=== PATIENT | female | born 1955 | race Hispanic/Latino ===

== ENCOUNTER 2020-01-11 01:30 | Inpatient (IN) | payer OTHER ==
[~2020-01-11] VITALS: Ht 152.4 cm; Wt 40.4 kg
[2020-01-11 01:59] LABS: BASOPHILS % (AUTO) 0.4 % (0.0-5.0); EOSINOPHILS % (AUTO) 0.1 % (0.0-8.0); HEMATOCRIT 50.2 % (36-48); LYMPHOCYTES % (AUTO) 8.6 % (21.0-51.0); MEAN CORPUSCULAR HEMOGLOBIN 31.8 pg (27.0-33.0); MEAN CORPUSCULAR HGB CONC 33.9 g/dL (32.0-36.0); MEAN CORPUSCULAR VOLUME 93.8 fL (79-99); MONOCYTES % (AUTO) 3.8 % (3.0-13.0); NEUTROPHILS % (AUTO) 85.3 % (40.0-77.0); PLATELET COUNT (AUTO) 464 K/uL (130-400); RED BLOOD CELL COUNT(AUTO) 5.35 MIL/uL (4.00-5.50); RED CELL DISTRIBUTION WIDTH 12.3 % (11.0-15.5); WHITE BLOOD COUNT (AUTO) 18.4 K/uL (4.8-10.8)
[2020-01-11] MEDS ORDERED: ONDANSETRON HCL 4 MG/2 ML VIAL ONE ×2 (02:01→10:38)
[2020-01-11 02:12] LABS: INR 0.97 (0.85-1.15); PARTIAL THROMBOPLASTIN TIME 26.3 SEC (26.3-35.5); PROTHROMBIN TIME 10.5 SEC (9.6-11.6)
[2020-01-11 02:13] LABS: ALBUMIN 4.5 g/dL (3.5-5.0); BILIRUBIN,TOTAL 0.4 mg/dL (0.2-1.0); CREATININE 1.2 mg/dL (0.5-1.5); POTASSIUM 3.7 mmol/L (3.5-5.1); TOTAL PROTEIN, SERUM 9.2 g/dL (6.0-8.3)
[2020-01-11 02:32] LABS: ABG HCO3 2.7 mmol/L (21.0-28.0); ABG OXYGEN SATURATION 97.4 % (95.0-99.0); ABG PCO2 < 15 mmHg (32-45)
[2020-01-11] MEDS ORDERED: INSULIN HUMULIN R 100 UNIT/ML 3ML ONE (02:32)
[2020-01-11] MEDS ORDERED: SODIUM CHLORIDE 0.9% 1000ML 2,000 ML IV ONE (02:33)
[2020-01-11] MEDS ORDERED: SODIUM CHLORIDE 0.9% 100 ML IV ONE (02:33)
[2020-01-11] MEDS ORDERED: POTASSIUM CHLORIDE 20MEQ/100ML 100 ML IV ONE ×2 (02:44→05:47)
[2020-01-11] MEDS ORDERED: SODIUM BICARB 50MEQ 50ML VIAL 100 ML ONE ×2 (02:44→05:19)
[2020-01-11 03:14] LABS: APPEARANCE,URINE Clear (CLEAR); BILIRUBIN,URINE Negative (NEGATIVE); COLOR,URINE Yellow (YELLOW); GLUCOSE, URINE (UA) >=1000 mg/dL (NEGATIVE); KETONES,URINE >=160 mg/dL (NEGATIVE); LEUKOCYTE ESTERASE ,URINE Negative (NEGATIVE); NITRATE,URINE Negative (NEGATIVE); OCCULT BLOOD,URINE Small (NEGATIVE); PROTEIN,URINE POS 2+ mg/dL (NEGATIVE); UROBILINOGEN,URINE 0.2 mg/dL (0.2-1.0)
[2020-01-11 03:21] LABS: AMORPHOUS SEDIMENT,UR Many /LPF (None Seen); BACTERIA,URINE Rare /HPF (None Seen); MUCUS,URINE Few LPF (None Seen); RBC,URINE None Seen /HPF (0-1); SQUAMOUS EPITHELIAL CELL,UR Few /HPF (0-2); WBC,URINE None Seen /HPF (0-1)
[2020-01-11] MEDS ORDERED: SODIUM CHLORIDE 0.9% 1000ML 1,000 ML IV ONE ×2 (03:43→04:39)
[2020-01-11] MEDS ORDERED: DEXTROSE 5 %-0.45 % NACL 1,000 ML IV PRN (04:15)
[2020-01-11] MEDS ORDERED: HYDRALAZINE HCL 20 MG/ML VIAL IV PRN (04:15)
[2020-01-11] MEDS ORDERED: ACETAMINOPHEN 325 MG TAB PO PRN ×2 (04:15)
[2020-01-11] MEDS ORDERED: ONDANSETRON HCL 4 MG/2 ML VIAL IV PRN (04:15)
[2020-01-11] MEDS ORDERED: LACTULOSE 20 GM/30 ML UDCUP PO PRN (04:15)
[2020-01-11] MEDS ORDERED: SODIUM CHLORIDE 0.9% 1000ML 1,000 ML IV SCH ×3 (04:15→15:45)
[2020-01-11] MEDS ORDERED: MORPHINE SULFATE 2 MG/ML 1ML SYG IV PRN (04:15)
[2020-01-11] MEDS ORDERED: INSULIN REGULAR, HUMAN 3ML 100 UNIT in SODIUM CHLORIDE 0.9% 99 ML IV PRN ×2 (04:30)
[2020-01-11 05:10] LABS: ABG BASE EXCESS -24.6 mmol/L (-2.0-3.0); ABG HCO3 3.1 mmol/L (21.0-28.0); ABG OXYGEN SATURATION 98.1 % (95.0-99.0); ABG PCO2 < 15 mmHg (32-45)
[2020-01-11 05:12] LABS: CREATININE 0.8 mg/dL (0.5-1.5); POTASSIUM 3.8 mmol/L (3.5-5.1)
[2020-01-11 05:21] LABS: ALBUMIN 3.3 g/dL (3.5-5.0); BILIRUBIN,TOTAL 0.5 mg/dL (0.2-1.0); TOTAL PROTEIN, SERUM 6.8 g/dL (6.0-8.3)
[2020-01-11] MEDS ORDERED: GLUCAGON 1MG KIT 1 MG ML IM PRN (07:45)
[2020-01-11] MEDS ORDERED: DEXTROSE 50%-WATER 50 ML DISP.SYRIN IV PRN (07:45)
[2020-01-11] MEDS ORDERED: NS-20 MEQ KCL 1000ML 1,000 ML IV SCH (07:45)
[2020-01-11] MEDS ORDERED: FAMOTIDINE/PF 20 MG/2 ML VIAL IV ONE (08:30)
[2020-01-11] MEDS ORDERED: ENOXAPARIN SODIUM 40 MG/0.4 ML SYRINGE SQ ONE (08:30)
[2020-01-11] MEDS: POTASSIUM CHLORIDE 30 MEQ in SODIUM CHLORIDE 0.9% 1000ML 1,000 ML IV SCH ×2 (08:45→12:45)
[2020-01-11] MEDS: FAMOTIDINE/PF 20 MG/2 ML VIAL IV SCH ×2 (09:00→21:06)
[2020-01-11] MEDS: ENOXAPARIN SODIUM 40 MG/0.4 ML SYRINGE SQ SCH (09:00)
[2020-01-11] MEDS ORDERED: ZOSYN 3.375GM+NS 50ML 50 ML IV ONE (09:09)
[2020-01-11] MEDS ORDERED: MAGNESIUM 2GM PREMIX 50ML 50 ML IV ONE (09:10)
[2020-01-11] MEDS: ZOSYN 3.375GM+NS 50ML 50 ML IV SCH ×3 (09:15→21:06)
[2020-01-11] MEDS ORDERED: MAGNESIUM 2GM PREMIX 50ML 50 ML IV NR ×2 (09:30→15:00)
[2020-01-11] MEDS ORDERED: MORPHINE SULFATE 2 MG/ML 1ML SYG ONE (10:38)
[2020-01-11] MEDS ORDERED: INSULIN R PO SS2 SQ SCH (11:30)
[2020-01-11 12:15] VITALS: BP 104/32
[2020-01-11 13:24] LABS: CREATININE 0.7 mg/dL (0.5-1.5); POTASSIUM 3.5 mmol/L (3.5-5.1)
[2020-01-11 13:32] LABS: ABG OXYGEN SATURATION 67.6 % (95.0-99.0); BASE EXCESS,VENOUS BLOOD GAS -17.4 (-2.0-3.0); HCO3,VENOUS BLOOD GAS 9.1 (21.0-28.0); PCO2,VENOUS BLOOD GAS 25 (32-45); PH,VENOUS BLOOD GAS 7.183 (7.350-7.450)
[2020-01-11] MEDS ORDERED: D5W-1/2 NS/20MEQ KCL 1,000 ML IV SCH (15:30)
--- NOTE | 2020-01-11 15:43 | NUR ---
CM NOTE/IA UNSUCCESSFUL UNABLE TO MET WITH PATIENT AT BEDSIDE. PATIENTS PHONE NUMBER, , CALLED AND NO ANSWER, VM LEFT. SPOUSE, BEKA SPARKS [phone], ALSO CALLED, NO ANSWER AND VOICEMAIL LEFT. CM TO FOLLOW UP ON IA. Addendum: 01/11/20 at 1544 by AMY CAGE RN CM Amended: Links added.
[2020-01-11] MEDS: POTASSIUM CHLORIDE 10MEQ/100ML 100 ML IV PRN (17:45)
[2020-01-11 21:06] LABS: CREATININE 0.8 mg/dL (0.5-1.5); POTASSIUM 3.3 mmol/L (3.5-5.1)
[2020-01-12] VITALS (14 sets, daily range): BP systolic 78–129; BP diastolic 42–75
[2020-01-12 04:26] LABS: BASOPHILS % (AUTO) 0.2 % (0.0-5.0); EOSINOPHILS % (AUTO) 0.6 % (0.0-8.0); HEMATOCRIT 38.7 % (36-48); LYMPHOCYTES % (AUTO) 13.8 % (21.0-51.0); MEAN CORPUSCULAR HEMOGLOBIN 31.7 pg (27.0-33.0); MEAN CORPUSCULAR HGB CONC 35.7 g/dL (32.0-36.0); MEAN CORPUSCULAR VOLUME 88.8 fL (79-99); MONOCYTES % (AUTO) 8.9 % (3.0-13.0); NEUTROPHILS % (AUTO) 76.2 % (40.0-77.0); PLATELET COUNT (AUTO) 289 K/uL (130-400); RED BLOOD CELL COUNT(AUTO) 4.36 MIL/uL (4.00-5.50)
[2020-01-12 04:58] LABS: CREATININE 0.8 mg/dL (0.5-1.5); MAGNESIUM 2.1 mg/dL (1.80-2.40); PHOSPHORUS 1.2 mg/dL (2.5-4.9); POTASSIUM 3.1 mmol/L (3.5-5.1)
[2020-01-12] MEDS: ZOSYN 3.375GM+NS 50ML 50 ML IV SCH (05:24)
[2020-01-12] MEDS ORDERED: POTASSIUM CHLORIDE 20 MEQ/100 ML BAG IV SCH (07:30)
[2020-01-12] MEDS: INSULIN HUMULIN R 100 UNIT/ML 3ML SQ SCH ×7 (07:30→22:11)
[2020-01-12] MEDS: INSULIN GLARGINE 100 UNITS/ML 10 ML VIAL SQ SCH ×2 (08:14→08:16)
[2020-01-12] MEDS: ENOXAPARIN SODIUM 40 MG/0.4 ML SYRINGE SQ SCH (08:15)
[2020-01-12] MEDS: FAMOTIDINE/PF 20 MG/2 ML VIAL IV SCH ×2 (08:15→21:56)
[2020-01-12] MEDS: LACTATED RINGERS 1000ML 1,000 ML IV SCH ×3 (08:15→21:56)
--- NOTE | 2020-01-12 08:44 | NUR ---
CHART CHECK COMPLETED. Pt IS A 64 Y.O. FEMALE ADMITTED SECONDARY TO DKA AND HYPERTENSION. Pt HAS A PAST MEDICAL HISTORY SIGNIFICANT FOR DMII. Pt CURRENTLY NPO DUE TO ADMITTING DIAGNOSIS. PLEASE REQUEST FORMAL SKILLED SPEECH THERAPY ORDER IF Pt PRESENTS WITH +S/S OF ASPIRATION SUCH COUGH RESPONSE, THROAT CLEAR OR WET VOCAL QUALITY AT MEAL TIMES. Addendum: 01/12/20 at [address] Amended: Links added.
[2020-01-12] MEDS ORDERED: POTASSIUM PHOS 15 mMOL+NS250ML 250 ML IV PRN (10:30)
--- NOTE | 2020-01-12 11:19 | NUR ---
DC PLAN VISITED WITH PATIENT. PATIENT LIVES WITH SPOUSE. INDEPENDENT ABLE TO PERFORM ADL'S. PATIENT HAS NO SERVICE OR DME'S. FEELS SAFE TO RETURN HOME. 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 SAYS HAS DIABETES FOR A WHILE. DOES CHECK SUGARS GOES TO [facility]. Addendum: 01/12/20 at 1120 by WILDER VEGA RN CM Amended: Links added.
[2020-01-12 16:37] LABS: CREATININE 0.6 mg/dL (0.5-1.5); MAGNESIUM 1.9 mg/dL (1.80-2.40); PHOSPHORUS 2.1 mg/dL (2.5-4.9); POTASSIUM 3.3 mmol/L (3.5-5.1)
--- NOTE | 2020-01-12 16:40 | NUR ---
Report given to JUAN Rodriguez, to be transferred to room 424
[2020-01-12] MEDS: POTASSIUM CHLORIDE 10MEQ/100ML 100 ML IV PRN (16:46)
--- NOTE | 2020-01-12 17:00 | NUR ---
Transferred to room 424 via wheelchair, patient's granddaughter at bedside.
[2020-01-13 04:13] VITALS: BP 135/72
[2020-01-13 05:04] LABS: BASOPHILS % (AUTO) 0.2 % (0.0-5.0); EOSINOPHILS % (AUTO) 1.8 % (0.0-8.0); HEMATOCRIT 34.5 % (36-48); LYMPHOCYTES % (AUTO) 35.1 % (21.0-51.0); MEAN CORPUSCULAR HEMOGLOBIN 31.7 pg (27.0-33.0); MEAN CORPUSCULAR HGB CONC 36.2 g/dL (32.0-36.0); MEAN CORPUSCULAR VOLUME 87.6 fL (79-99); MONOCYTES % (AUTO) 8.7 % (3.0-13.0); NEUTROPHILS % (AUTO) 53.7 % (40.0-77.0); PLATELET COUNT (AUTO) 222 K/uL (130-400); RED BLOOD CELL COUNT(AUTO) 3.94 MIL/uL (4.00-5.50); RED CELL DISTRIBUTION WIDTH 11.9 % (11.0-15.5); WHITE BLOOD COUNT (AUTO) 6.6 K/uL (4.8-10.8)
[2020-01-13 05:34] LABS: CREATININE 0.3 mg/dL (0.5-1.5)
[2020-01-13] MEDS: INSULIN HUMULIN R 100 UNIT/ML 3ML SQ SCH ×8 (05:39→21:54)
[2020-01-13 05:46] LABS: POTASSIUM 2.9 mmol/L (3.5-5.1)
[2020-01-13] MEDS ORDERED: LIDOCAINE HCL-MPF 1% 2ML VIAL IJ PRN (06:00)
[2020-01-13] MEDS ORDERED: POTASSIUM CHLORIDE 10% ELIXIR 20 MEQ/15 ML UDCUP PO PRN (06:00)
[2020-01-13] MEDS ORDERED: MAGNESIUM 2GM PREMIX 50ML 50 ML IV PRN (06:00)
[2020-01-13] MEDS ORDERED: POTASSIUM CHLORIDE 20MEQ/100ML 100 ML IV PRN (06:00)
[2020-01-13] MEDS ORDERED: LIDOCAINE HCL-MPF 1% 2ML VIAL ONE (06:21)
[2020-01-13] MEDS ORDERED: POTASSIUM CHLORIDE 20MEQ/100ML 100 ML IV ONE (06:21)
[2020-01-13 06:46] LABS: MAGNESIUM 1.7 mg/dL (1.80-2.40); PHOSPHORUS 1.8 mg/dL (2.5-4.9)
[2020-01-13 07:48] VITALS: BP 129/70
[2020-01-13] MEDS ORDERED: INSULIN GLARGINE 100 UNITS/ML 10 ML VIAL SQ SCH (09:00)
[2020-01-13] MEDS: FAMOTIDINE/PF 20 MG/2 ML VIAL IV SCH ×2 (10:08→21:53)
[2020-01-13] MEDS: ENOXAPARIN SODIUM 40 MG/0.4 ML SYRINGE SQ SCH (10:08)
[2020-01-13 11:45] VITALS: BP 97/52
--- NOTE | 2020-01-13 12:43 | NUR ---
SHIRA FULTON MADE AWARE OF BS 355, NO NEW ORDERS
[2020-01-13 15:30] VITALS: BP 108/90
[2020-01-13] MEDS ORDERED: POTASSIUM CHLORIDE 20 MEQ ERTAB PO SCH (17:45)
[2020-01-13 20:00] VITALS: BP 128/72
[2020-01-13 23:26] VITALS: BP 115/55
[2020-01-14 03:51] LABS: BASOPHILS % (AUTO) 0.3 % (0.0-5.0); EOSINOPHILS % (AUTO) 0.2 % (0.0-8.0); HEMATOCRIT 34.7 % (36-48); LYMPHOCYTES % (AUTO) 27.9 % (21.0-51.0); MEAN CORPUSCULAR HEMOGLOBIN 31.5 pg (27.0-33.0); MEAN CORPUSCULAR HGB CONC 35.4 g/dL (32.0-36.0); MEAN CORPUSCULAR VOLUME 88.7 fL (79-99); MONOCYTES % (AUTO) 9.1 % (3.0-13.0); NEUTROPHILS % (AUTO) 62.2 % (40.0-77.0); PLATELET COUNT (AUTO) 249 K/uL (130-400); RED BLOOD CELL COUNT(AUTO) 3.91 MIL/uL (4.00-5.50); RED CELL DISTRIBUTION WIDTH 11.9 % (11.0-15.5); WHITE BLOOD COUNT (AUTO) 6.2 K/uL (4.8-10.8)
[2020-01-14 03:59] LABS: CREATININE 0.4 mg/dL (0.5-1.5); POTASSIUM 3.3 mmol/L (3.5-5.1)
[2020-01-14 04:00] VITALS: BP 108/60
[2020-01-14] MEDS: INSULIN HUMULIN R 100 UNIT/ML 3ML SQ SCH ×4 (06:00→11:58)
--- NOTE | 2020-01-14 07:45 | NUR ---
ASSESSMENT ENCOUNTERED PT AMBULATING TO BATHROOM, A&OX3, GAIT STEADY AND STRONG WITH STAND BY ASSIST. PT DENIES PAIN, SOB, NAUSEA, CALM COOPERATIVE AND DOES NOT APPEAR TO BE IN ANY DISTRESS NOR ANY NEURO DEFICITS PRESENT. PT IS ABLE TO TOLERATE FOODS, FLUIDS AND MEDICATION WITH NO THROAT CLEARING OR COUGH. CALL LIGHT WITHIN REACH.
[2020-01-14 08:00] VITALS: BP 110/59
[2020-01-14 08:34] LABS: PHOSPHORUS 2.6 mg/dL (2.5-4.9)
[2020-01-14] MEDS: FAMOTIDINE/PF 20 MG/2 ML VIAL IV SCH (09:00)
[2020-01-14] MEDS ORDERED: INSULIN GLARGINE 100 UNITS/ML 10 ML VIAL SQ SCH (09:00)
[2020-01-14] MEDS ORDERED: FAMOTIDINE 20MG TAB 20 MG TAB ONE (09:03)
[2020-01-14] MEDS: POTASSIUM CHLORIDE 20 MEQ ERTAB PO PRN ×2 (09:17→11:57)
[2020-01-14 11:55] VITALS: BP 101/51
--- NOTE | 2020-01-14 14:20 | NUR ---
RD NOTIFICATION Pt admitted due to DKA and HTN. Pt denies current n/v. Pt stated she is eating better and has an appetite. Pt is currently on a 75 gm CC and consuming 100% as per EMR. Pt was dx with DM 10 years ago. Pt stated she has had prior education and has attended classes in [facility] [address]. As per pt, she has had unintentional wt loss of 40 lbs. Unclear in time frame. As per pt, she tends to forget to follow her insulin regimen at home. RD was consulted for Diet education, malnutrition and wt loss. %UBW: 68% (SEVERE MALNUTRITION) %WT CHANGE: 31% (UNCLEAR ON TIME FRAME. SIGNIFICANT WT CHANGE.) BMI: 17.4 (PROTEIN ENERGY MALNUTRITION II) LOW BMI FOR AGE. RD RECOMMENDATION: Continue current diet order. Glucerna BID Monitor PO intake and tolerance. Pt may benefit from ProMod 60 ml QD. Diet education. Addendum: 01/14/20 at [address] Amended: Links added.
--- NOTE | 2020-01-14 14:26 | NUR ---
RD TEACHING NOTE Pt was dx with DM 10 years ago. Pt stated she has had prior education and has attended classes in [facility]. As per pt, she has had unintentional wt loss of 40 lbs. Unclear on time frame. As per pt, she tends to forget to follow her insulin regimen at home. RD was consulted for Diet education, malnutrition and wt loss. As per EMR, MD noted pt tends to consume regular sodas daily and eats sweets. When RD asked pt, pt denies drinking sodas or eating sweet food. (A1C >15.5). RD noticed pt was not honest with her daily eating habits. Pt was encouraged to choose diet sodas, sugar free drinks, to follow a balanced diet, and continue attending educational DM classes. Pt was also encouraged to follow recommended DM medication regimen to avoid further unintentional wt loss. Educational material was given, RD encouraged pt to contact RD for further questions. Pt was concerned with her memory loss, pt was encouraged to voice concerns to . RD to follow pt's status. Contact dietary as nutritional concerns arise. Addendum: 01/14/20 at [address] Amended: Links added.
[2020-01-14 16:00] VITALS: BP 125/89
--- NOTE | 2020-01-14 17:48 | NUR ---
DISCHARGE INSTRUCTIONS GIVEN, PIV REMOVED AND INTACT, PRESCRIPTIONS AND SLIDING SCALE PROVIDED PER DR FITZGERALD'S ORDER. PT DISCHARGED TO FAMILY VEHICLE VIA WHEELCHAIR.
== END 2020-01-14 17:30 | disposition home or self-care (01) | DRG 637 ==
LOC: EDH 01:30 → EDHIP 04:11 → 2DH 12:26 → 4DH 01-12 17:20
PROVIDERS: ADMIT Internal Medicine; ATTEND Internal Medicine
DX: E11.10 Type 2 diabetes mellitus with ketoacidosis without coma (principal); E43 Unspecified severe protein-calorie malnutrition; Z68.1 Body mass index [BMI] 19.9 or less, adult; D72.828 Other elevated white blood cell count; E10.319 Type 1 diabetes mellitus with unspecified diabetic retinopathy without macular edema; E86.1 Hypovolemia; E86.0 Dehydration; K82.8 Other specified diseases of gallbladder; I10 Essential (primary) hypertension; E10.42 Type 1 diabetes mellitus with diabetic polyneuropathy; E87.6 Hypokalemia; G89.29 Other chronic pain; M79.673 Pain in unspecified foot; Z79.4 Long term (current) use of insulin; Z91.19 Patient's noncompliance with other medical treatment and regimen
CPT/HCPCS: 36415; 36600; 70450; 71045; 74176; 80048; 80053; 81001; 82010; 82550; 82803; 82947; 82948; 83036; 83735; 84100; 84132; 84145; 84484; 85025; 85610; 85730; 93005; 93925; 97039; 99291; G0378; J1650; J1815; J2405; J2543; J3475; J3480; J3490; J7030; J7120

== ENCOUNTER 2020-05-02 11:10 | Inpatient (IN) | payer BC, OTHER ==
[~2020-05-02] VITALS: Ht 152.4 cm; Wt 45.6 kg
[2020-05-02 11:37] LABS: BASOPHILS % (AUTO) 0.3 % (0.0-5.0); EOSINOPHILS % (AUTO) 0.3 % (0.0-8.0); LYMPHOCYTES % (AUTO) 27.5 % (21.0-51.0); MEAN CORPUSCULAR VOLUME 91.1 fL (79-99); MONOCYTES % (AUTO) 8.3 % (3.0-13.0); NEUTROPHILS % (AUTO) 63.1 % (40.0-77.0); PLATELET COUNT (AUTO) 377 K/uL (130-400); RED BLOOD CELL COUNT(AUTO) 4.61 MIL/uL (4.00-5.50); RED CELL DISTRIBUTION WIDTH 11.8 % (11.0-15.5); WHITE BLOOD COUNT (AUTO) 7.4 K/uL (4.8-10.8)
[2020-05-02 12:02] LABS: ALBUMIN 4.3 g/dL (3.5-5.0); BILIRUBIN,TOTAL 0.5 mg/dL (0.2-1.0); CREATININE 0.6 mg/dL (0.5-1.5); POTASSIUM 3.9 mmol/L (3.5-5.1); TOTAL PROTEIN, SERUM 8.2 g/dL (6.0-8.3)
[2020-05-02 12:12] LABS: INR 1.03 (0.85-1.15); PROTHROMBIN TIME 11.2 SEC (9.6-11.6)
[2020-05-02 12:13] LABS: PARTIAL THROMBOPLASTIN TIME 24.5 SEC (26.3-35.5)
[2020-05-02] MEDS: 0.9%NACL 1000ML 1,000 ML IV SCH (17:00)
[2020-05-02 17:08] LABS: HEMOGLOBIN A1C 9.5 % (4.0-6.0)
[2020-05-02] MEDS ORDERED: 0.9%NACL 1000ML 1,000 ML IV ONE (17:47)
[2020-05-02] MEDS ORDERED: MORPHINE 2 MG SYG IVP PRN (18:15)
[2020-05-02] MEDS ORDERED: ONDANSETRON 4MG INJ IV PRN (18:15)
[2020-05-03] MEDS ORDERED: NITROGLYCERIN 0.4 MG SL TAB SL PRN (05:00)
[2020-05-03 07:01] LABS: APPEARANCE,URINE Clear (CLEAR); BILIRUBIN,URINE Negative (NEGATIVE); COLOR,URINE Yellow (YELLOW); GLUCOSE, URINE (UA) Negative (NEGATIVE); KETONES,URINE Negative (NEGATIVE); LEUKOCYTE ESTERASE ,URINE Negative (NEGATIVE); NITRATE,URINE Negative (NEGATIVE); OCCULT BLOOD,URINE Negative (NEGATIVE); PROTEIN,URINE Negative (NEGATIVE); UROBILINOGEN,URINE 0.2 mg/dL (0.2-1.0)
[2020-05-03 07:05] LABS: AMPHET/METH SCREEN,URINE NEGATIVE (NEGATIVE); BARBITURATE SCREEN, URINE NEGATIVE (NEGATIVE); BENZODIAZEPINES SCREEN,URINE NEGATIVE (NEGATIVE); CANNABINOID SCREEN,URINE NEGATIVE (NEGATIVE); COCAINE SCREEN,URINE NEGATIVE (NEGATIVE); OPIATE SCREEN,URINE NEGATIVE (NEGATIVE); PHENCYCLIDINE SCREEN,URINE NEGATIVE (NEGATIVE)
[2020-05-03 07:31] LABS: BASOPHILS % (AUTO) 0.3 % (0.0-5.0); EOSINOPHILS % (AUTO) 0.6 % (0.0-8.0); HEMATOCRIT 41.3 % (36-48); MEAN CORPUSCULAR HEMOGLOBIN 30.6 pg (27.0-33.0); MEAN CORPUSCULAR HGB CONC 33.7 g/dL (32.0-36.0); MONOCYTES % (AUTO) 11.1 % (3.0-13.0); NEUTROPHILS % (AUTO) 60.7 % (40.0-77.0); PLATELET COUNT (AUTO) 366 K/uL (130-400); RED BLOOD CELL COUNT(AUTO) 4.54 MIL/uL (4.00-5.50); RED CELL DISTRIBUTION WIDTH 11.9 % (11.0-15.5); WHITE BLOOD COUNT (AUTO) 7.1 K/uL (4.8-10.8)
[2020-05-03 07:45] LABS: ALBUMIN 3.5 g/dL (3.5-5.0); BILIRUBIN,TOTAL 0.5 mg/dL (0.2-1.0); CREATININE 0.6 mg/dL (0.5-1.5); TOTAL PROTEIN, SERUM 7.1 g/dL (6.0-8.3)
[2020-05-03] MEDS ORDERED: FAMOTIDINE 20MG TAB ONE ×2 (08:00→23:33)
[2020-05-03] MEDS ORDERED: ASPIRIN 81MG CHEW TAB ONE (08:00)
[2020-05-03] MEDS ORDERED: THIAMINE HCL 100 MG TABLET ONE (08:00)
[2020-05-03] MEDS ORDERED: 0.9%NACL 1000ML 1,000 ML IV ONE (08:00)
[2020-05-03] MEDS ORDERED: ENOXAPARIN SODIUM 30 MG/0.3 ML SQ ONE (08:01)
[2020-05-03] MEDS ORDERED: FOLIC ACID 1 MG TABLET ONE (08:01)
[2020-05-03] MEDS: FOLIC ACID 1 MG TABLET PO SCH (09:00)
[2020-05-03] MEDS: ASPIRIN 81MG CHEW TAB PO SCH (09:00)
[2020-05-03] MEDS: THIAMINE HCL 100 MG TABLET PO SCH (09:00)
[2020-05-03] MEDS: ENOXAPARIN SODIUM 30 MG/0.3 ML SQ SCH (09:00)
[2020-05-03] MEDS: 0.9%NACL 1000ML 1,000 ML IV SCH (13:00)
[2020-05-03] MEDS: FAMOTIDINE 20MG TAB PO SCH (21:00)
[2020-05-03] MEDS: ATORVASTATIN 20 MG TABLET PO SCH (21:00)
[2020-05-03] MEDS: INSULIN HUMULIN R 100 UNIT/ML 3ML SQ SCH (21:00)
[2020-05-03] MEDS ORDERED: ATORVASTATIN 20 MG TABLET ONE (23:33)
[2020-05-04 02:20] VITALS: BP 125/66
[2020-05-04] MEDS: INSULIN HUMULIN R 100 UNIT/ML 3ML SQ SCH ×4 (07:17→20:06)
[2020-05-04 08:00] VITALS: BP 117/51
[2020-05-04] MEDS: 0.9%NACL 1000ML 1,000 ML IV SCH ×2 (09:00→20:07)
[2020-05-04] MEDS: ASPIRIN 81MG CHEW TAB PO SCH (09:06)
[2020-05-04] MEDS: ENOXAPARIN SODIUM 30 MG/0.3 ML SQ SCH (09:06)
[2020-05-04] MEDS: FAMOTIDINE 20MG TAB PO SCH ×2 (09:06→20:07)
[2020-05-04] MEDS: THIAMINE HCL 100 MG TABLET PO SCH (09:06)
[2020-05-04] MEDS: FOLIC ACID 1 MG TABLET PO SCH (09:06)
[2020-05-04] MEDS ORDERED: ASPI-1005 PO (10:24)
[2020-05-04] MEDS ORDERED: ATOR20TA65 PO (10:24)
[2020-05-04 11:43] VITALS: BP 124/58
[2020-05-04 16:00] VITALS: BP 140/52
[2020-05-04 20:00] VITALS: BP 108/49
[2020-05-04] MEDS: ATORVASTATIN 20 MG TABLET PO SCH (20:07)
[2020-05-04 23:57] VITALS: BP 125/66
[2020-05-05 04:00] VITALS: BP 102/63
[2020-05-05] MEDS ORDERED: INSU100C6 SQ (07:27)
[2020-05-05] MEDS ORDERED: METF-444 PO (07:27)
[2020-05-05] MEDS ORDERED: LISI10TA24 PO (07:27)
[2020-05-05] MEDS ORDERED: INSU100V12 SQ (07:27)
[2020-05-05] MEDS: INSULIN HUMULIN R 100 UNIT/ML 3ML SQ SCH ×4 (07:30→21:00)
[2020-05-05 07:57] VITALS: BP 125/56
[2020-05-05] MEDS: FOLIC ACID 1 MG TABLET PO SCH (08:57)
[2020-05-05] MEDS: FAMOTIDINE 20MG TAB PO SCH ×2 (08:57→20:50)
[2020-05-05] MEDS: THIAMINE HCL 100 MG TABLET PO SCH (08:57)
[2020-05-05] MEDS: ASPIRIN 81MG CHEW TAB PO SCH (08:57)
[2020-05-05] MEDS: ENOXAPARIN SODIUM 30 MG/0.3 ML SQ SCH (08:58)
[2020-05-05 11:23] VITALS: BP 143/54
[2020-05-05] MEDS: CLOPIDOGREL 75MG TAB PO SCH (12:02)
[2020-05-05 16:19] VITALS: BP 142/63
[2020-05-05 19:37] VITALS: BP 132/48
[2020-05-05] MEDS: ATORVASTATIN 20 MG TABLET PO SCH (20:50)
[2020-05-05] MEDS: 0.9%NACL 1000ML 1,000 ML IV SCH (20:56)
[2020-05-06 00:03] VITALS: BP 130/70
[2020-05-06 03:21] VITALS: BP 125/58
[2020-05-06 06:33] LABS: BASOPHILS % (AUTO) 0.6 % (0.0-5.0); EOSINOPHILS % (AUTO) 1.5 % (0.0-8.0); HEMATOCRIT 38.9 % (36-48); LYMPHOCYTES % (AUTO) 37.1 % (21.0-51.0); MEAN CORPUSCULAR HEMOGLOBIN 31.3 pg (27.0-33.0); MEAN CORPUSCULAR VOLUME 89.6 fL (79-99); MONOCYTES % (AUTO) 10.3 % (3.0-13.0); NEUTROPHILS % (AUTO) 50.1 % (40.0-77.0); PLATELET COUNT (AUTO) 295 K/uL (130-400); RED BLOOD CELL COUNT(AUTO) 4.34 MIL/uL (4.00-5.50); RED CELL DISTRIBUTION WIDTH 11.8 % (11.0-15.5); WHITE BLOOD COUNT (AUTO) 4.8 K/uL (4.8-10.8)
[2020-05-06] MEDS: INSULIN HUMULIN R 100 UNIT/ML 3ML SQ SCH ×4 (06:42→22:34)
[2020-05-06 06:43] LABS: CREATININE 0.5 mg/dL (0.5-1.5); POTASSIUM 3.6 mmol/L (3.5-5.1)
[2020-05-06 08:00] VITALS: BP 123/67
[2020-05-06] MEDS: THIAMINE HCL 100 MG TABLET PO SCH (09:27)
[2020-05-06] MEDS: FOLIC ACID 1 MG TABLET PO SCH (09:28)
[2020-05-06] MEDS: FAMOTIDINE 20MG TAB PO SCH ×2 (09:28→20:33)
[2020-05-06] MEDS: ENOXAPARIN SODIUM 30 MG/0.3 ML SQ SCH (09:28)
[2020-05-06] MEDS: ASPIRIN 81MG CHEW TAB PO SCH (09:28)
[2020-05-06] MEDS: CLOPIDOGREL 75MG TAB PO SCH (09:30)
[2020-05-06] MEDS ORDERED: REGADENOSON 0.4 MG/5 ML PF SYG IVP SCH (10:15)
[2020-05-06 12:49] VITALS: BP 131/57
[2020-05-06 16:08] VITALS: BP 121/67
[2020-05-06] MEDS ORDERED: ACETAMINOPHEN 325 MG TAB PO PRN (17:15)
[2020-05-06 19:49] VITALS: BP 113/60
[2020-05-06] MEDS: ATORVASTATIN 20 MG TABLET PO SCH (20:33)
[2020-05-06] MEDS ORDERED: HYDROXYZINE 25 MG TABLET PO PRN (21:30)
[2020-05-07] VITALS: BP 135/58
[2020-05-07] MEDS: 0.9%NACL 1000ML 1,000 ML IV SCH (01:15)
[2020-05-07 04:18] VITALS: BP 118/62
[2020-05-07 07:00] VITALS: BP 121/70
[2020-05-07] MEDS: INSULIN HUMULIN R 100 UNIT/ML 3ML SQ SCH ×3 (07:30→16:30)
[2020-05-07] MEDS: ASPIRIN 81MG CHEW TAB PO SCH (07:43)
[2020-05-07] MEDS: FOLIC ACID 1 MG TABLET PO SCH (07:44)
[2020-05-07] MEDS: CLOPIDOGREL 75MG TAB PO SCH (07:44)
[2020-05-07] MEDS: FAMOTIDINE 20MG TAB PO SCH (07:44)
[2020-05-07] MEDS: THIAMINE HCL 100 MG TABLET PO SCH (07:44)
[2020-05-07] MEDS: ENOXAPARIN SODIUM 30 MG/0.3 ML SQ SCH (07:45)
[2020-05-07] MEDS ORDERED: LISINOPRIL 10 MG TABLET PO SCH (09:00)
[2020-05-07 11:30] VITALS: BP 104/60
[2020-05-07] MEDS ORDERED: INSULIN GLARGINE 100 UNITS/ML 10 ML VIAL SQ SCH ×2 (12:55→21:00)
[2020-05-07] MEDS ORDERED: INSULIN LISPRO 100 UNIT/ML 3ML SQ PRN (15:00)
[2020-05-07] MEDS ORDERED: GLUCAGON 1MG KIT 1 MG ML IM PRN (15:15)
[2020-05-07 16:00] VITALS: BP 102/50
[2020-05-07] MEDS ORDERED: INSULIN HUMULIN R 100 UNIT/ML 3ML SQ SCH (16:30)
[2020-05-07] MEDS ORDERED: INSULIN LISPRO 100 UNIT/ML 3ML SQ SCH (17:00)
[2020-05-07] MEDS ORDERED: METFORMIN HCL 500 MG TABLET PO SCH (21:00)
== END 2020-05-07 17:20 | disposition home or self-care (01) | DRG 69 ==
LOC: EDH 11:10 → EDHIP 16:46 → OBSVTOIN 16:46 → 3BH 05-04 01:47
PROVIDERS: ADMIT Internal Medicine; ATTEND Internal Medicine
DX: G45.9 Transient cerebral ischemic attack, unspecified (principal); I25.3 Aneurysm of heart; Q21.1 Atrial septal defect; I10 Essential (primary) hypertension; E11.65 Type 2 diabetes mellitus with hyperglycemia; E78.5 Hyperlipidemia, unspecified; R07.89 Other chest pain; R54 Age-related physical debility; F41.9 Anxiety disorder, unspecified; F32.9 Major depressive disorder, single episode, unspecified; Z79.4 Long term (current) use of insulin; Z79.02 Long term (current) use of antithrombotics/antiplatelets; Z79.82 Long term (current) use of aspirin; Z79.899 Other long term (current) drug therapy; Z83.3 Family history of diabetes mellitus
CPT/HCPCS: 36415; 70450; 70551; 71045; 78452; 80048; 80053; 80305; 81003; 82550; 82607; 82746; 82947; 82948; 83036; 83721; 84443; 84484; 85025; 85610; 85730; 92522; 92610; 93005; 93017; 93356; 93880; 96374; 99291; A9500; C8929; G0378; J1650; J1815; J2785; J7030

== ENCOUNTER 2021-09-03 14:17 | Inpatient (IN) | payer BC, MEDICARE ==
[2021-09-03] VITALS (20 sets, daily range): BP systolic 100–141; BP diastolic 40–79
[~2021-09-03] VITALS: Ht 154.9 cm; Wt 54.1 kg
[~2021-09-03 14:17] MED LIST: ASPI-1005 PO; ATOR20TA65 PO; INSU100C6 SQ; INSU100V12 SQ; LISI10TA24 PO; METF-444 PO
[2021-09-03] MEDS ORDERED: MORPHINE 2 MG SYG IVP ONE (15:00)
[2021-09-03] MEDS ORDERED: ONDANSETRON 4MG INJ IVP ONE (15:00)
[2021-09-03 15:13] LABS: BASOPHILS % (AUTO) 0.1 % (0.0-5.0); HEMATOCRIT 43.8 % (36-48); LYMPHOCYTES % (AUTO) 3.1 % (21.0-51.0); MEAN CORPUSCULAR HEMOGLOBIN 30.5 pg (27.0-33.0); MEAN CORPUSCULAR HGB CONC 34.2 g/dL (32.0-36.0); MONOCYTES % (AUTO) 4.7 % (3.0-13.0); NEUTROPHILS % (AUTO) 91.6 % (40.0-77.0); PLATELET COUNT (AUTO) 380 K/uL (130-400); RED BLOOD CELL COUNT(AUTO) 4.92 MIL/uL (4.00-5.50); WHITE BLOOD COUNT (AUTO) 15.3 K/uL (4.8-10.8)
[2021-09-03 15:34] LABS: BILIRUBIN,TOTAL 0.5 mg/dL (0.2-1.0); CREATININE 0.9 mg/dL (0.5-1.5); POTASSIUM 4.6 mmol/L (3.5-5.1); TOTAL PROTEIN, SERUM 8.5 g/dL (6.0-8.3)
[2021-09-03 15:47] LABS: APPEARANCE,URINE Clear (CLEAR); BILIRUBIN,URINE Negative (NEGATIVE); COLOR,URINE Yellow (YELLOW); GLUCOSE, URINE (UA) >=1000 mg/dL (NEGATIVE); KETONES,URINE Negative (NEGATIVE); LEUKOCYTE ESTERASE ,URINE Trace (NEGATIVE); NITRATE,URINE Negative (NEGATIVE); OCCULT BLOOD,URINE Negative (NEGATIVE); PROTEIN,URINE Negative (NEGATIVE); UROBILINOGEN,URINE 0.2 mg/dL (0.2-1.0)
[2021-09-03 15:59] LABS: RBC,URINE 0-1 /HPF (0-1)
[2021-09-03 16:00] LABS: BACTERIA,URINE Rare /HPF (None Seen); SQUAMOUS EPITHELIAL CELL,UR Few /HPF (0-2)
[2021-09-03] MEDS ORDERED: INSULIN HUMULIN R 100 UNIT/ML 3ML IV ONE (16:00)
[2021-09-03] MEDS: 0.9%NACL 1000ML 1,000 ML IV SCH ×3 (16:10→22:32)
[2021-09-03] MEDS ORDERED: 0.9%NACL 1000ML 1,000 ML IV SCH ×2 (16:30→16:45)
[2021-09-03] MEDS ORDERED: METOPROLOL TARTRATE 1 MG/ML 5ML VIAL IV PRN ×4 (16:30→18:00)
[2021-09-03] MEDS ORDERED: HYDROMORPHONE 0.5 MG SYG (0.5MG/0.5ML) IM PRN ×3 (16:30→17:00)
[2021-09-03] MEDS ORDERED: ACETAMINOPHEN 325 MG TAB PO PRN ×2 (16:30→16:45)
[2021-09-03] MEDS ORDERED: HYDROMORPHONE 0.5 MG SYG (0.5MG/0.5ML) IV PRN ×2 (18:00→21:00)
[2021-09-03] MEDS ORDERED: INSULIN HUMULIN R 100 UNIT/ML 3ML SQ SCH ×2 (18:00)
[2021-09-03] MEDS: INSULIN HUMULIN R 100 UNIT/ML 3ML SQ SCH (18:00)
[2021-09-03] MEDS ORDERED: CEFAZOLIN SODIUM 1 GM VIAL ONE (19:13)
[2021-09-03] MEDS ORDERED: PROPOFOL 10 MG/ML 20ML VIAL IV ONE (19:22)
[2021-09-03] MEDS ORDERED: ROCURONIUM 10MG/1ML SYR 10 MG/ML ML ONE (19:22)
[2021-09-03] MEDS ORDERED: MIDAZOLAM HCL 1 MG/ML 2ML VIAL ONE (19:22)
[2021-09-03] MEDS ORDERED: LIDOCAINE PF 100MG/5ML (2%) SYRINGE 5ML ONE (19:22)
[2021-09-03] MEDS ORDERED: SUCCINYLCHOLINE CHLORIDE 20 MG/ML 10 ML VIAL ONE (19:22)
[2021-09-03] MEDS ORDERED: FENTANYL CITRATE PF 50 MCG/1 ML 2ML VIAL ONE (19:23)
[2021-09-03] MEDS ORDERED: ROPIVACAINE 0.5% 5MG/ML 30ML IJ ONE (19:27)
[2021-09-03] MEDS ORDERED: EPHEDRINE SULFATE 50 MG/ML AMPULE ONE (19:45)
[2021-09-03] MEDS ORDERED: SITA25TA5 PO (19:46)
[2021-09-03] MEDS ORDERED: LOSA25TA41 PO (19:46)
[2021-09-03] MEDS ORDERED: DONE5TAB33 PO (19:46)
[2021-09-03] MEDS ORDERED: PRAV10TA39 PO (19:46)
[2021-09-03] MEDS ORDERED: MEMA5TAB7 PO (19:46)
[2021-09-03] MEDS ORDERED: GLYCOPYRROLATE 1 MG/5 ML SYRINGE ONE (20:04)
[2021-09-03] MEDS ORDERED: NEOSTIGMINE 5MG/5ML SYR IV ONE (20:36)
[2021-09-03] MEDS ORDERED: METFORMIN HCL 500 MG TABLET PO SCH (21:00)
[2021-09-03] MEDS: Pravastatin Sodium 10 MG PO SCH (21:00)
[2021-09-03] MEDS: DONEPEZIL HCL 5 MG TAB PO SCH (22:31)
[2021-09-03] MEDS: ATORVASTATIN 20 MG TABLET PO SCH (22:31)
[2021-09-03] MEDS: MEMANTINE HCL 5 MG TABLET PO SCH (22:31)
[2021-09-03] MEDS: CEFAZOLIN SODIUM 1 GM VIAL IVP SCH (22:36)
[2021-09-03] MEDS ORDERED: HYDROCODONE/ACETAMINOPHEN 5/325 MG TAB PO PRN (23:00)
[2021-09-04] VITALS (10 sets, daily range): BP systolic 103–139; BP diastolic 46–64
[2021-09-04] MEDS: 0.9%NACL 1000ML 1,000 ML IV SCH (02:05)
[2021-09-04] MEDS: INSULIN HUMULIN R 100 UNIT/ML 3ML SQ SCH ×5 (05:28→23:27)
[2021-09-04] MEDS: CEFAZOLIN SODIUM 1 GM VIAL IVP SCH (06:01)
[2021-09-04 08:04] LABS: HEMATOCRIT 29.1 % (36-48); MEAN CORPUSCULAR VOLUME 91.2 fL (79-99); RED BLOOD CELL COUNT(AUTO) 3.19 MIL/uL (4.00-5.50); RED CELL DISTRIBUTION WIDTH 12.2 % (11.0-15.5); WHITE BLOOD COUNT (AUTO) 10.7 K/uL (4.8-10.8)
[2021-09-04 08:14] LABS: CREATININE 0.6 mg/dL (0.5-1.5); POTASSIUM 3.6 mmol/L (3.5-5.1)
[2021-09-04] MEDS: MEMANTINE HCL 5 MG TABLET PO SCH ×2 (08:32→20:55)
[2021-09-04] MEDS: LOSARTAN 25 MG TABLET PO SCH (08:32)
[2021-09-04] MEDS: PANTOPRAZOLE 40 MG/VIAL IVP SCH (08:32)
[2021-09-04] MEDS ORDERED: ACETAMINOPHEN 500 MG TABLET PO PRN (10:30)
[2021-09-04] MEDS: KETOROLAC 15MG/ML VIAL (15MG/ML) IV PRN (11:03)
[2021-09-04] MEDS: HYDROCODONE/ACETAMINOPHEN 5/325 MG TAB PO PRN (18:04)
[2021-09-04] MEDS: Pravastatin Sodium 10 MG PO SCH (20:55)
[2021-09-04] MEDS: ATORVASTATIN 20 MG TABLET PO SCH (20:55)
[2021-09-04] MEDS: DONEPEZIL HCL 5 MG TAB PO SCH (20:55)
[2021-09-05 04:39] VITALS: BP 114/53
[2021-09-05] MEDS: INSULIN HUMULIN R 100 UNIT/ML 3ML SQ SCH ×4 (05:47→20:09)
[2021-09-05] MEDS: PANTOPRAZOLE 40 MG/VIAL IVP SCH (07:45)
[2021-09-05] MEDS: LOSARTAN 25 MG TABLET PO SCH (07:46)
[2021-09-05] MEDS: MEMANTINE HCL 5 MG TABLET PO SCH ×2 (07:46→20:08)
[2021-09-05 07:48] LABS: HEMATOCRIT 28.2 % (36-48); MEAN CORPUSCULAR HEMOGLOBIN 30.6 pg (27.0-33.0); MEAN CORPUSCULAR HGB CONC 33.7 g/dL (32.0-36.0); RED BLOOD CELL COUNT(AUTO) 3.1 MIL/uL (4.00-5.50); RED CELL DISTRIBUTION WIDTH 12.2 % (11.0-15.5); WHITE BLOOD COUNT (AUTO) 11.3 K/uL (4.8-10.8)
[2021-09-05 08:00] VITALS: BP 121/87
[2021-09-05 08:03] LABS: CREATININE 0.5 mg/dL (0.5-1.5); POTASSIUM 3.5 mmol/L (3.5-5.1)
[2021-09-05] MEDS: HYDROCODONE/ACETAMINOPHEN 5/325 MG TAB PO PRN (10:08)
[2021-09-05 12:00] VITALS: BP 104/42
[2021-09-05 16:00] VITALS: BP 116/42
[2021-09-05] MEDS: Pravastatin Sodium 10 MG PO SCH (20:08)
[2021-09-05] MEDS: DONEPEZIL HCL 5 MG TAB PO SCH (20:08)
[2021-09-05] MEDS: ATORVASTATIN 20 MG TABLET PO SCH (20:08)
[2021-09-05 20:38] VITALS: BP 132/53
[2021-09-05] MEDS: KETOROLAC 15MG/ML VIAL (15MG/ML) IV PRN (21:19)
[2021-09-05 23:25] VITALS: BP 128/50
[2021-09-06] MEDS: HYDROCODONE/ACETAMINOPHEN 5/325 MG TAB PO PRN (03:08)
[2021-09-06 04:21] VITALS: BP 126/50
[2021-09-06] MEDS: INSULIN HUMULIN R 100 UNIT/ML 3ML SQ SCH ×4 (06:17→16:31)
[2021-09-06] MEDS: KETOROLAC 15MG/ML VIAL (15MG/ML) IV PRN ×2 (06:20→17:24)
[2021-09-06 08:00] VITALS: BP 139/51
[2021-09-06 08:07] LABS: MEAN CORPUSCULAR HEMOGLOBIN 30.9 pg (27.0-33.0); MEAN CORPUSCULAR HGB CONC 33.8 g/dL (32.0-36.0); MEAN CORPUSCULAR VOLUME 91.2 fL (79-99); RED BLOOD CELL COUNT(AUTO) 2.85 MIL/uL (4.00-5.50); WHITE BLOOD COUNT (AUTO) 9.9 K/uL (4.8-10.8)
[2021-09-06 08:18] LABS: CREATININE 0.5 mg/dL (0.5-1.5); POTASSIUM 3.2 mmol/L (3.5-5.1)
[2021-09-06] MEDS: LOSARTAN 25 MG TABLET PO SCH (09:59)
[2021-09-06] MEDS: MEMANTINE HCL 5 MG TABLET PO SCH ×2 (09:59→19:50)
[2021-09-06] MEDS: PANTOPRAZOLE 40 MG/VIAL IVP SCH (09:59)
[2021-09-06] MEDS ORDERED: POTASSIUM CHLORIDE 10% ELIXIR 20 MEQ/15 ML UDCUP PO PRN (10:00)
[2021-09-06] MEDS ORDERED: MAGNESIUM 2GM PREMIX 50ML 50 ML IV PRN (10:00)
[2021-09-06] MEDS ORDERED: LIDOCAINE HCL-MPF 1% 2ML VIAL IV PRN (10:00)
[2021-09-06] MEDS ORDERED: POTASSIUM CHLORIDE 20MEQ/100ML 100 ML IV PRN (10:00)
[2021-09-06 12:00] VITALS: BP 123/35
[2021-09-06] MEDS: KCL 20 MEQ ERTAB PO PRN ×3 (12:55→16:30)
[2021-09-06 16:00] VITALS: BP 135/45
[2021-09-06] MEDS: ATORVASTATIN 20 MG TABLET PO SCH (19:50)
[2021-09-06] MEDS: DONEPEZIL HCL 5 MG TAB PO SCH (19:50)
[2021-09-06 20:00] VITALS: BP 130/50
[2021-09-07] VITALS: BP 174/76
[2021-09-07] MEDS: KETOROLAC 15MG/ML VIAL (15MG/ML) IV PRN (01:23)
[2021-09-07] MEDS: HYDROCODONE/ACETAMINOPHEN 5/325 MG TAB PO PRN ×2 (02:52→08:47)
[2021-09-07 04:18] LABS: BASOPHILS % (AUTO) 0.1 % (0.0-5.0); EOSINOPHILS % (AUTO) 0.8 % (0.0-8.0); HEMATOCRIT 24.9 % (36-48); LYMPHOCYTES % (AUTO) 13.8 % (21.0-51.0); MEAN CORPUSCULAR HEMOGLOBIN 30.8 pg (27.0-33.0); MEAN CORPUSCULAR HGB CONC 34.1 g/dL (32.0-36.0); MEAN CORPUSCULAR VOLUME 90.2 fL (79-99); MONOCYTES % (AUTO) 9.3 % (3.0-13.0); NEUTROPHILS % (AUTO) 75.6 % (40.0-77.0); PLATELET COUNT (AUTO) 290 K/uL (130-400); RED BLOOD CELL COUNT(AUTO) 2.76 MIL/uL (4.00-5.50); WHITE BLOOD COUNT (AUTO) 8.3 K/uL (4.8-10.8)
[2021-09-07 04:26] LABS: CREATININE 0.5 mg/dL (0.5-1.5); MAGNESIUM 2.1 mg/dL (1.80-2.40); POTASSIUM 4.4 mmol/L (3.5-5.1)
[2021-09-07 04:31] VITALS: BP 122/44
[2021-09-07] MEDS: INSULIN HUMULIN R 100 UNIT/ML 3ML SQ SCH ×2 (06:17→11:24)
[2021-09-07] MEDS: MEMANTINE HCL 5 MG TABLET PO SCH (08:46)
[2021-09-07] MEDS: LOSARTAN 25 MG TABLET PO SCH (08:46)
[2021-09-07] MEDS: PANTOPRAZOLE 40 MG/VIAL IVP SCH (08:46)
[2021-09-07 09:09] VITALS: BP 120/49
[2021-09-07 11:42] VITALS: BP 129/41
== END 2021-09-07 15:00 | DRG 482 ==
LOC: EDH 14:17 → 4AH 16:10 → EDH 16:27
PROVIDERS: ADMIT Hospitalist; ATTEND Hospitalist
PROC: 0QS704Z Reposition Left Upper Femur with Internal Fixation Device, Open Approach (ICD-10-PCS; principal; 2021-09-03 19:58)
DX: S72.142A Displaced intertrochanteric fracture of left femur, initial encounter for closed fracture (principal); E11.65 Type 2 diabetes mellitus with hyperglycemia; I10 Essential (primary) hypertension; E78.5 Hyperlipidemia, unspecified; E11.51 Type 2 diabetes mellitus with diabetic peripheral angiopathy without gangrene; F03.90 Unspecified dementia, unspecified severity, without behavioral disturbance, psychotic disturbance, mood disturbance, and anxiety; Z20.822 Contact with and (suspected) exposure to COVID-19; W18.39XA Other fall on same level, initial encounter; F32.A Depression, unspecified; Y93.89 Activity, other specified; Y92.89 Other specified places as the place of occurrence of the external cause; Y99.8 Other external cause status; Z83.3 Family history of diabetes mellitus; Z82.49 Family history of ischemic heart disease and other diseases of the circulatory system
CPT/HCPCS: 36415; 71045; 73502; 73503; 80048; 80053; 81001; 82948; 83735; 84484; 85025; 85027; 86850; 86900; 86901; 87635; 93005; 97039; C1769; C1776; C9113; C9803; G0378; J0330; J0690; J1170; J1815; J1885; J2001; J2250; J2405; J2704; J2710; J2795; J3010; J3475; J3490; J7030